=== PATIENT | male | born 1950 | race Caucasian/White ===

== ENCOUNTER 2018-11-06 05:44 | Day surgery (SDC) | payer MEDICARE, OTHER, SELFPAY ==
[2018-11-06] VITALS (7 sets, daily range): BP systolic 94–148; BP diastolic 50–71; PULSE 67–77; RESP 16; TEMP 36.2–36.7; O2SAT 94–99; BMI 33.5
--- NOTE | 2018-11-06 06:59 | HP.PCM_ITS ---
History and Physical Date of Admission: 11/06/18 Amol Mcnally 1950 ? ? REFERRING PHYSICIAN: Caleb Gonzalez MD ? CHIEF COMPLAINT: New Patient (port placement) ? HPI: The patient is a 68 year old male presents with esophageal cancer and requires IV access for chemotherapy. Had DVT of lower extremity and also saddle PE. Presently on anticoagulation, had IVC filter placed. He needs portacath, he has exhausted his peripheral vein access. Had previous PICC line. Denies previous clavicular or rib fractures. Denies shoulder surgeries/dislocations. Does not know if he had previous central line placed, he was in the ICU for at least a week and does not recall much of the time. ? ? PAST MEDICAL HISTORY ? Anxiety ? ? Claustrophobia ? ? Esophageal cancer (HCC) ? ? Hemorrhoids ? ? Hypoxemia 10/08/2018 ? Kidney stones ? ? Positive colorectal cancer screening using Cologuard test ? ? Sleep apnea ? ? TIA (transient ischemic attack) ? ? PAST SURGICAL HISTORY ? LITHROTRIPSY ? ? ? THYROIDECTOMY ? Current Outpatient Medications: rivaroxaban (XARELTO) 20 mg tablet Take 20 mg by mouth once daily. QUEtiapine (SEROQUEL) 25 mg tablet Take half a tablet in the morning and 1 tablet at bedtime tamsulosin ER (FLOMAX) 0.4 mg cap Take 1 capsule by mouth once daily. pantoprazole DR (PROTONIX) 40 mg tablet Take 1 tablet by mouth once daily. lisinopril (ZESTRIL, PRINIVIL) 40 mg tablet Take 40 mg by mouth once daily. aspirin, enteric coated (ASPIRIN, ENTERIC COATED) 81 mg EC tablet Aspirin( 81MG Oral daily ) Active -Hx Entry multivit-mins/iron/folic/lycop (CENTRUM MEN ORAL) Centrum Adults( Oral daily ) Active -Hx Entry [place]-3 Fatty Acids (FISH OIL) 500 mg cap Fish Oil( 1200MG Oral two times daily ) Active -Hx Entry lidocaine-prilocaine (EMLA) cream Apply to port site 60 minutes prior to chemotherapy ondansetron (ZOFRAN) 8 mg tablet Take 1 tablet by mouth every 8 hours as needed for Nausea/Vomiting (For chemotherapy induced nausea). FOR NAUSEA enoxaparin (LOVENOX) 120 mg/0.8 mL injection Inject 0.8 mL subcutaneously q 12 HR. (Patient not taking: Reported on 11/01/2018 ? ? ALLERGIES: Patient has no known allergies. ? PERSONAL HISTORY: Social History Socioeconomic History Marital status: Spouse name: Not on file Number of children: Not on file Years of education: Not on file Highest education level: Not on file Occupational History Not on file Social Needs Financial resource strain: Not on file Food insecurity: Worry: Not on file Inability: Not on file Transportation needs: Medical: Not on file Non-medical: Not on file Tobacco Use Smoking status: Former Smoker Years: 6.00 Types: Cigarettes Quit date: 10/31/1959 Years since quittin.0 Smokeless tobacco: Never Used Tobacco comment: only smoked 6 years , while in [employer] Substance and Sexual Activity Alcohol use: Never Frequency: Never Drug use: Never Sexual activity: Not on file Lifestyle Physical activity: Days per week: Not on file Minutes per session: Not on file Stress: Not on file Relationships Social connections: Talks on phone: Not on file Gets together: Not on file Attends zoroastrianism service: Not on file Active member of club or organization: Not on file Attends meetings of clubs or organizations: Not on file Relationship status: Not on file Intimate partner violence: Fear of current or ex partner: Not on file Emotionally abused: Not on file Physically abused: Not on file Forced sexual activity: Not on file Other Topics Concerns: Not on file Social History Narrative Not on file ? FAMILY HISTORY ? COPD Mother ? ? Heart disease Father ? ? other (rheumatic fever) Father ? ? Cancer Sister ? ? Aneurysm Daughter ? ? ? REVIEW OF SYSTEMS: General: The patient denies fatigue, denies weight loss, denies weight gain, denies feeling hot, and denies feelings of cold. Eyes: The patient denies glaucoma, denies eye injury/surgery, does not wear glasses or contacts. Ear/Nose/Throat: The patient denies allergies, denies hayfever, denies ear infections, and denies bloody noses. Cardiovascular: The patient denies chest pain, denies heart disease, denies high blood pressure,denies cardiac stent, denies prior heart attack, denies irregular heart beat, denies high cholesterol, denies poor circulation, denies heart failure, other cardiac issues, denies claudication, denies cold f eet, denies peripheral arterial stent. Respiratory: The patient denies tuberculosis, denies pneumonia, denies frequent cough, denies pulmonary embolism, denies shortness of breath, and denies coughing up blood. Gastrointestinal: The patient denies difficulty swallowing, denies acid reflux, denies ulcers, denies vomiting, denies jaundice/hepatitis, denies gallbladder problems, denies black or tarry stools, denies hemorrhoids, denies bleeding from rectum, denies diverticulitis, denies constipation, denies diarrhea, denies loss of stool control, and denies hernias. Kidney/Bladder: The patient NOTES kidney stones, denies urine infections, and denies bloody urine. Skin: The patient denies a history of skin cancer, denies bleeding/changing moles, and denies a history of skin rash. Neurologic: The patient denies a history of epilepsy/convulsions, denies headaches, denies head/spinal injuries, and denies stroke/TIA. Psychiatric: The patient denies psychiatric medications, denies depression, and denies voices, denies substance abuse. Endocrine: The patient denies thyroid disorders, denies diabetes, and denies hormonal problems. Hematologic: The patient denies a history of bruising, denies bleeding, and denies anemia, denies blood clots. Infections: The patient NOTES a history of measles and mumps, denies rheumatic fever, and denies sexually transmitted diseases. Musculoskeletal: The patient denies back pain/injury, denies back problems, denies sciatica, denies knee/foot trouble, denies arthritis, or denies gout. ? PHYSICAL EXAMINATION: General: The patient is 68 year old male, well nourished, well hydrated in no acute distress. The patient is oriented to time, place, and person. VITALS: Blood pressure 138/70, pulse 94, temperature 36.3 ?C (97.4 ?F), temperature source Temporal, resp. rate 18, height 181 cm (5' 11.26), weight 110.9 kg (244 lb 9.6 oz), SpO2 96 %. Body mass index is 33.87 kg/m?. Head ? Normocephalic. EOM intact with sclera clear and no icterus noted. Mouth with mucus membranes moist. Neck - supple with no jugular venous distention noted. Trachea is midline. No carotid bruits noted. No masses noted. Lungs ? clear to auscultation. Normal breath sounds. No rales/rhonchi/wheezing noted. No labored breathing noted, such as retractions. Heart ? normal S1 and S2 auscultated. No rubs/clicks/murmurs noted. Regular rate. Abdomen ? soft and benign. Normal bowel sounds. No abdominal bruits noted. Extremities ? no calf tenderness noted. No pitting edema noted. Skin ? normal skin integrity. Lymph ? no cervical adenopathy detected, no supraclavicular adenopathy detected, no axillary adenopathy detected Neurological ? gait normal, no focal deficits noted Psych ? calm and appropriate ? IMPRESSION: esophageal cancer ? PLAN: I have discussed the above with the patient and his who is present with him. I have offered placement of portacath. I have explained the procedure to the patient. I have counseled the patient as to the risks of the procedure, including but not limited to: infection, bleeding, injury to any blood vessels/nerves, scar tissue, injury to the lungs such as pneumothorax or hemothorax, thromboses of the port, infection of the port, non functioning of the port, wound infections, complications of anesthesia, etc. ? the patient understands. He has just recently started xarelto, I have told him to go back on lovenox, also to stop aspirin and fish oil. The patient wishes to proceed. I have answered all questions to the patient?s satisfaction and the patient has no further questions. ?
[2018-11-06] MEDS: Cefazolin 2 GM in 0.9% Normal Saline 100 ML IV (07:29)
--- NOTE | 2018-11-06 08:11 | PCM.OPRPT ---
Report of Operation Date of Procedure: 11/06/18 Pre-Operative Diagnosis: esophageal cancer, need for IV access Post-Operative Diagnosis: same as above Surgery/Procedure Performed:: placement of permanent indwelling tunnelled catheter in left subclavian vein with subcutaneous port Description of Surgical Findings:: normal left subclavian vein anatomy to SVC Type of Anesthesia:: Local MAC Anesthesiologist: Dmitry Love Specimen's removed: none Estimated Blood Loss (mL): < 5 ml Fluids Replaced: 800 ml RL Description of Procedure: After informed consent was given, the patient was brought to the operating room. Appropriate time out protocol was followed. He was then placed in the supine position. He was then given IV conscious sedation for anesthesia. The patient?s upper chest and neck were then prepped with a surgical skin preparation and sterile surgical drapes were placed. After proper landmarks were ascertained, the skin at the upper left chest area was then infiltrated with 1% xylocaine with epinephrine. A needle trocar was then inserted into the left subclavian vein and there was good aspiration of venous blood. A wire was then threaded into the needle trocar and this was visualized under fluoroscopy to ensure that the wire was in the left subclavian vein. Once this was done, then the needle trocar was removed. A small skin jimy was made with an 11 blade knife at the wire entrance site. The dilator with the introducer sheath attached was then placed over the wire into the left subclavian vein via the Seldinger technique and this was visualized under fluoroscopy. The dilator and sheath were in proper position as visualized by fluoroscopy. The wire and dilator were then removed. The catheter was then threaded into the introducer sheath and was positioned with its tip at the junction of the superior vena cava and the right atrium as visualized under fluoroscopy. The catheter was flushed with a heparin saline mixture prior to placement. A subcutaneous pocket was then created caudad to the catheter insertion site. A transverse skin incision was made after the skin and subcutaneous tissues were infiltrated with local anesthetic. Blunt dissection was then used to create a space large enough for placement of the subcutaneous port. Hemostasis was carefully controlled with electrocautery. The port was sutured to the subcutaneous fascia using vicryl suture at three sites. The catheter was then tunneled into the subcutaneous pocket. The excess catheter was transected. The catheter was then attached to the subcutaneous port using mechanic welder truck driver?s guidelines. The port was then placed in the subcutaneous pocket and the sutures were ligated. The subdermal incisional sites were reapproximated with interrupted vicryl suture. The skin was reapproximated with monocryl suture in a subcuticular fashion. Sterile dressing was applied. Patient was brought to the Recovery Room in stable condition. Grafts/Implants Used: Power[employer] lot:[id number] - Complications none noted - Admit VTE Documentation VTE Present on Admission: Yes VTE Mechan Device Prophylaxis: SCD's
--- NOTE | 2018-11-06 08:16 | PCM.DC.POR ---
Discharge Diet: No Restrictions Discharge Activity: Return to Normal Activity, May not drive while taking narcotic pain medications. Call your doctor if your incision/area has: Continuous Slow Oozing, Foul Smelling Discharge Call your doctor if you observe: Fever of 101 or Higher Additional Dressing/Incision Instructions:: Leave dressings in place. May get wet in shower. Do not soak - no tub baths/swimming Allergies/Adverse Reactions: Allergies No Known Allergies Allergy (Verified 11/06/18 06:02) Medications to take at Discharge Aspirin [Aspir-Low] 81 mg PO DAILY 11/04/18 Enoxaparin [Lovenox] 120 mg SQ BID 11/04/18 Lisinopril 40 mg PO DAILY 11/04/18 Multivit-Min/FA/Lycopen/Lutein [Centrum Silver Tablet] 1 ea PO DAILY 11/04/18 [place]-3/Dha/Epa/Fish Oil [Fish Oil 1,000 mg Softgel] 2 ea PO DAILY 11/04/18 Pantoprazole Sodium [Protonix] 40 mg PO DAILY 11/04/18 Quetiapine Fumarate [Seroquel] 6.25 mg PO QHS 11/04/18 Rivaroxaban [Xarelto] 20 mg PO DAILY 11/04/18 Tamsulosin HCl [Flomax] 0.4 mg PO DAILY 11/04/18 Hydrocodone Bitart/Apap 5-325 [[place] 5MG-325MG] 1 tab PO Q8H PRN PRN 3 Days #9 tab 11/06/18 The following prescriptions were given: Hydrocodone Bitart/Apap 5-325 [[place] 5MG-325MG] 1 tab PO Q8H PRN PRN 3 Days #9 tab PRN Reason: Pain Prescription Printed Primary Care Physician: Juan Adams MD [Primary Care Provider] - Test Results: Test results from this visit will be discussed in further detail at your follow-up appointment, if applicable. Please Follow Up With: Ester Arshad MD - call When: to be seen as per needed
--- NOTE | 2018-11-06 08:22 | RAD_ITS ---
STUDY: X-RAY CHEST REASON FOR EXAM: Male, 68 years old. Port placement. TECHNIQUE: Single AP portable view of the chest. COMPARISON: None. FINDINGS: A left-sided alexander catheter as been placed. The tip is at the junction of the superior vena cava and right atrium. I suspect a 2.4 cm nodule in the right suprahilar region. Increased markings at the left lung base suggestive of linear atelectasis and/or scarring. There is no demonstrated pleural abnormality. There is mild cardiac enlargement. Normal mediastinum and ramandeep. Normal visualized pulmonary arteries. There is atherosclerotic calcification of the aortic arch with tortuosity. There are diffuse degenerative changes of the visualized thoracic spine. Normal visualized ribs, clavicles, and shoulders. There is no demonstrated abnormality of the visualized soft tissue structures of the upper abdomen. RAD/CXR for Line Placement IMPRESSION: The tip of the left-sided portacatheter is at the junction of the superior vena cava and right atrium. Electronically Signed: Vinod Trinidad, at 10:56 EDT , Service support ,
== END 2018-11-06 09:56 | disposition home or self-care (01) ==
LOC: SDC 05:46 → AC 05:48
PROVIDERS: Family Provider Internal Medicine; PCP Internal Medicine; Referring Provider Surgery; Visit Provider Surgery
PROC: (CPT 36561; principal; 2018-11-06 07:15)
DX: Z45.2 Encounter for adjustment and management of vascular access device (principal); C15.9 Malignant neoplasm of esophagus, unspecified; K21.9 Gastro-esophageal reflux disease without esophagitis; F41.0 Panic disorder [episodic paroxysmal anxiety]; F40.240 Claustrophobia; I10 Essential (primary) hypertension; G47.30 Sleep apnea, unspecified; Z86.718 Personal history of other venous thrombosis and embolism; Z86.711 Personal history of pulmonary embolism; Z79.01 Long term (current) use of anticoagulants; Z79.82 Long term (current) use of aspirin; Z79.899 Other long term (current) drug therapy; Z86.73 Personal history of transient ischemic attack (TIA), and cerebral infarction without residual deficits; Z87.891 Personal history of nicotine dependence
CPT/HCPCS: 00532; 36561; 71045; 77001; J7120; C1788; J2405

== ENCOUNTER → 2018-11-12 09:27 | Outpatient (CLI) | payer MEDICARE, OTHER, SELFPAY ==
[2018-11-06 06:10] VITALS: BMI 33.5
--- NOTE | 2018-11-12 09:30 | STEWCON_ITS ---
Reason For Study: Pre-Op, Esophageal Cancer Stress Results Protocol: Dobutamine Stress Echo Maximum Predicted HR: 150 bpm Target HR: 128 bpm % Maximum Predicted HR: 87 % DurationHeart Rate Stage (mm:ss) (bpm) BP Comment Baseline 71 148/76No Chest Pain; 4 ML Diluted Definity Given DSE 10 MCG 3:28 85 142/68No Chest Pain DSE 20 MCG 4:20 131 158/73No Chest Pain Recovery 85 159/84No Chest Pain Stress Duration: 7:48 mm:ss Maximum Stress HR: 131 bpm Baseline Echocardiogram Findings Stress Echo Wall motion Data Resting WM Intermediate WM Stress WM Resting Wall Motion Wall Motion Int. Wall Motion Stress All segments Normal. All segments Hyperkinetic. All segments Hyperkinetic. Ejection Fraction 50 %. Ejection Fraction 60 %. Ejection Fraction 75 %. Stress Results Arrhythmias: Occasional PACs/repetitive PACs during recovery and rare PVC during recovery Stopped secondary to: Target heart rate achieved. EKG Data Baseline ECG: Normal Sinus Rhythm. Peak pharmacologic ECG: No Obvious ECG Changes. Symptoms with Stress No complaint of chest discomfort during pharmacologic infusion or recovery. Interpretation Summary Negative (Adequate) Dobutamine Stress Echocardiogram Ordering Physician: Caleb Gonzalez Referring Physician: Shaan Martel Performed By: Bonnie Gotti RDCS
== END ==
PROVIDERS: Family Provider Internal Medicine; PCP Internal Medicine; Referring Provider Internal Medicine Hematology & Oncology; Visit Provider Internal Medicine Hematology & Oncology
DX: R94.31 Abnormal electrocardiogram [ECG] [EKG] (principal); C15.9 Malignant neoplasm of esophagus, unspecified; I26.92 Saddle embolus of pulmonary artery without acute cor pulmonale; I10 Essential (primary) hypertension; G47.33 Obstructive sleep apnea (adult) (pediatric); R06.83 Snoring
CPT/HCPCS: 93017; 93350; J7040; Q9957; A4216; C8928

== ENCOUNTER → 2019-12-17 15:16 | Outpatient (CLI) | payer MEDICARE, OTHER, SELFPAY ==
[2018-11-06 06:10] VITALS: BMI 33.5
--- NOTE | 2019-12-17 | FLU_PTH ---
PATIENT: ERIC DUNCAN LOC: [facility] U#:[id number] AGE/SX: 74/M ROOM: RE12/17/[address]: Dr. Ester Arshad MD : 1950 BED: DIS: SPEC #: [id number] RECD: 12/17/19 15:07 STATUS: MAO REDali #: [id number] MONA: 12/17/19 00:[address]: Ester Arshad DEPT: CYTOLOGY RECD BY: Kvng [place] ENTERED: 12/18/19 07:29 SP TYPE: Fluid OTHR DR: Dr. Juan Adams MD Tissues: A - Thyroid gland, NOS B - Thyroid gland, NOS Procedures: Special Stain Group II Surgery Specimen Level IV Cytospin Fluid HEADER OPERATION: Ultrasound-guided FNA left thyroid mass PRE-OP DIAGNOSIS: Left thyroid nodules TISSUE SUBMITTED: A - Left thyroid biopsy, FNA fluid for cytology, B - Left thyroid biopsy, FNA slides?x5 DIAGNOSIS CYTOLOGY A. Left thyroid, FNA fluid for cytology (cytospin and cell block): Negative for malignant cells. Bloody specimen. B. Left thyroid mass, ultrasound-guided FNA (smears): Consistent with benign follicular nodule. See comment. LIONEL:malgorzata 12/19/19 COMMENT B. The specimen is paucicellular, however, meets the minimal criteria for adequacy. Correlation with clinical, radiologic findings and appropriate follow up are necessary. CYTOLOGY STUDY Slides are reviewed. CYTOLOGY GROSS A - Received is 30 ml of dark red fluid labeled with the patient's name and and designated per the requisition as left thyroid. Submitted for cytology preparation including cell block. B - Received are six smears labeled with the patient's name and designated per the requisition as left thyroid. Submitted for staining. / malgorzata 12/18/19 TC:5 CPT: 38732, 95817, 33978
== END ==
PROVIDERS: PCP Internal Medicine; Visit Provider Surgery
DX: E04.1 Nontoxic single thyroid nodule (principal)
CPT/HCPCS: 88108; 88305; 88313

== ENCOUNTER 2021-06-06 16:54 | Outpatient (CLI) | payer MEDICARE, OTHER, SELFPAY ==
--- NOTE | 2021-06-06 | FLU_PTH ---
PATIENT: ERIC DUNCAN LOC: [facility] U#:[id number] AGE/SX: 71/M ROOM: RE06/06/[address]: Dr. Ester Arshad MD : 1950 BED: DIS: 06/06/2021 SPEC #: [id number] RECD: 06/06/21 16:49 STATUS: MAO TABBY #: [id number] MONA: 06/06/21 00:[address]: Ester Arshad DEPT: CYTOLOGY RECD BY: Zora Matta ENTERED: 06/07/21 09:00 SP TYPE: Fluid OTHR DR: Dr. Juan Adams MD Tissues: A - Thyroid gland, NOS B - Thyroid gland, NOS Procedures: Special Stain Group II Surgery Specimen Level IV Cytospin Fluid Cytology Other HEADER OPERATION: Ultrasound-guided fine needle aspiration, left thyroid nodule PRE-OP DIAGNOSIS: Left thyroid nodule TISSUE SUBMITTED: A ? FNA, left thyroid nodule fluid, B - FNA, left thyroid nodule x6 slides DIAGNOSIS CYTOLOGY A. Fine needle aspiration, left thyroid nodule (cytospin and cell block): Adequate for evaluation. Negative, consistent with benign follicular/colloid nodule. B. Fine needle aspiration, left thyroid nodule (smears): Adequate for evaluation. Negative, consistent with benign follicular/colloid nodule. AM:malgorzata 06/08/2021 CYTOLOGY STUDY Slides are reviewed. CYTOLOGY GROSS A - Received is 30 ml of light arthur cloudy fluid labeled with the patient's name and and designated per the requisition as left thyroid. Submitted for cytology preparation including cell block. B - Received are six smears labeled with the patient's name and designated per the requisition as left thyroid. Submitted for staining. / malgorzata 06/07/2021 TC:5 CPT: 66864 x2, 58891
== END 2021-06-06 23:59 | disposition home or self-care (01) ==
LOC: LABSPEC 16:56
PROVIDERS: PCP Internal Medicine; Visit Provider Surgery
DX: E04.1 Nontoxic single thyroid nodule (principal)
CPT/HCPCS: 88108; 88161; 88305; 88313